=== PATIENT | female | born 1970 | race Caucasian/White ===

== ENCOUNTER 2016-06-16 20:44 | Inpatient (IN) | payer MEDICAID ==
[~2016-06-16] VITALS: Ht 160 cm; Wt 74.8 kg
[2016-06-16 21:58] LABS: CALCIUM 8.2 mg/dL (8.5-10.1); CARBON DIOXIDE 25.5 mmol/L (21-32); CHLORIDE SERUM 106 mmol/L (98-107); CREATININE SERUM 0.8 mg/dL (0.6-1.0); GFR1 > 60 mL/min; GLUCOSE SERUM 95 mg/dL (74-106); POTASSIUM SERUM 3.9 mmol/L (3.5-5.1); SODIUM SERUM 140 mmol/L (136-145)
[2016-06-16 22:03] LABS: ALBUMIN 3.1 g/dL (3.4-5.0); ALKALINE PHOSPHATASE 124 U/L (46-116); ALT/SGPT 12 U/L (14-59); AST/SGOT 11 U/L (15-37); BILIRUBIN TOTAL 0.15 mg/dL (0.20-1.00); TOTAL PROTEIN, SERUM 6.9 g/dL (6.4-8.2)
[2016-06-16 22:14] LABS: PLATELET COUNT 379 x10^3mcL (130-400)
[2016-06-16 22:16] LABS: RED CELL DISTRIBUTION WIDTH 19.8 % (11.5-14.5)
[2016-06-16 22:32] LABS: BAND NEUTROPHIL 2 % (0-10); BASOPHIL 0 % (0-2)
[2016-06-16 22:33] LABS: rbc morphology (normal/abnorm) ABNORMAL (NORMAL)
[2016-06-16 22:34] LABS: MONOCYTE 4 % (0-7); PATH REVIEW for HEMA YES; PLATELET MORPHOLOGY PLATELETS NORMAL; SEGMENTED NEUTROPHILS 70 % (37-75)
[2016-06-16] MEDS ORDERED: BIRTH CONTROL (23:46)
[2016-06-17] VITALS (10 sets, daily range): BP systolic 89–115; BP diastolic 38–55
[2016-06-17 00:22] LABS: CHOLESTEROL/HDL RATIO 3.8; T3 TOTAL 1.12 ng/mL
[2016-06-17 00:25] LABS: FREE T4 0.92 ng/dL (0.76-1.46); FREE THYROXINE INDEX 2.8 ug/dL (1.4-4.5); T4(THYROXINE) 8.9 ug/dL (4.7-13.3)
[2016-06-17 10:56] LABS: BASOPHIL % 0.2 % (0-2); PLATELET COUNT 358 x10^3mcL (130-400)
[2016-06-17 11:09] LABS: RED CELL DISTRIBUTION WIDTH 26.2 % (11.5-14.5)
[2016-06-17 11:10] LABS: rbc morphology (normal/abnorm) ABNORMAL (NORMAL)
[2016-06-17 11:15] LABS: CARBON DIOXIDE 27.4 mmol/L (21-32); CHLORIDE SERUM 104 mmol/L (98-107); CREATININE SERUM 0.7 mg/dL (0.6-1.0); GFR1 > 60 mL/min; GLUCOSE SERUM 87 mg/dL (74-106); MAGNESIUM 2.1 mg/dL (1.8-2.4); POTASSIUM SERUM 3.9 mmol/L (3.5-5.1); SODIUM SERUM 137 mmol/L (136-145)
[2016-06-17 20:01] LABS: microscopic required? YES; urine erythrocyte 3+ (NEGATIVE)
[2016-06-18 06:14] LABS: CALCIUM 7.9 mg/dL (8.5-10.1); CHLORIDE SERUM 108 mmol/L (98-107); CREATININE SERUM 0.8 mg/dL (0.6-1.0); GFR1 > 60 mL/min; GLUCOSE SERUM 83 mg/dL (74-106); POTASSIUM SERUM 4.1 mmol/L (3.5-5.1); SODIUM SERUM 142 mmol/L (136-145)
[2016-06-18 06:20] VITALS: BP 108/47
[2016-06-18 06:29] LABS: ALBUMIN 2.7 g/dL (3.4-5.0)
[2016-06-18 07:01] LABS: BASOPHIL % 0.3 % (0-2); PLATELET COUNT 345 x10^3mcL (130-400)
[2016-06-18 07:11] LABS: RED CELL DISTRIBUTION WIDTH 26.3 % (11.5-14.5)
[2016-06-18 07:12] LABS: rbc morphology (normal/abnorm) ABNORMAL (NORMAL)
[2016-06-18 09:26] VITALS: BP 105/55
[2016-06-18 13:37] VITALS: BP 108/52
[2016-06-18] MEDS ORDERED: LEVORA-281 TAB PO (15:04)
[2016-06-18] MEDS ORDERED: FER300 PO (15:07)
[2016-06-18] MEDS ORDERED: VITC PO (15:07)
[2016-06-18] MEDS ORDERED: CIPRO500 MG PO (15:08)
[2016-06-18] MEDS ORDERED: LAC PO (15:10)
[2016-06-18] MEDS ORDERED: ZOF4 PO (15:24)
[2016-06-18 15:34] VITALS: BP 108/52
[2016-06-18 16:50] VITALS: Ht 160 cm; Wt 74.8 kg
== END 2016-06-18 16:23 | disposition home or self-care (01) | DRG 517 ==
LOC: ED 20:44 → DU 23:41
PROVIDERS: Emergency Medicine; Obstetrics & Gynecology; ADMIT Family Medicine
PROC: 30233N1 Transfusion of Nonautologous Red Blood Cells into Peripheral Vein, Percutaneous Approach (ICD-10-PCS; 2016-06-17)
PROC: 0UDB7ZZ Extraction of Endometrium, Via Natural or Artificial Opening (ICD-10-PCS; principal; 2016-06-17 12:30)
DX: N92.1 Excessive and frequent menstruation with irregular cycle (principal); E43 Unspecified severe protein-calorie malnutrition; D62 Acute posthemorrhagic anemia; N39.0 Urinary tract infection, site not specified; E83.51 Hypocalcemia
CPT/HCPCS: 83880; 84439; 85060; 87491; 87591; 94150; J0696; J1410; J2250; J2405; J2704; J3010; J7030; J7050; J7120; P9016; Q0163